=== PATIENT | female | born 1935 | race Caucasian/White ===

== ENCOUNTER 2024-04-11 12:50 | Outpatient (AMB) | payer OTHER, SELFPAY ==
--- NOTE | 2024-04-11 13:24 | MHC.OFFVIS ---
Vital Signs 04/11/24 13:35 Height 5 ft 3 in Weight 152 lb 1.903 oz BMI 26.9 BP 176/78 H Blood Pressure Location Rt brachial Position Sitting Pulse 84 Pulse Source Pulse Oximeter Pulse Oximetry (%) 95 Oxygen Delivery Method Room Air Intake Visit Reasons: New onset of GI bleed. Seen at 01/04 Intake Note: Relevant Flags or Indicators ? Requires Electrical Maintenance Mechanic? Fritz Susie presents in office today for a scheduled initial assessment. CC; Records from [facility] pulled. Pt was seen via ED. Pt was instructed by [facility] to follow up with [facility]. Pt was admitted to [facility] x4 days. Full work up. Relevant GI Sx as reported per pt? None currently. Pt reports internal bleed according to [facility]. ? Hx of any recent surgeries? Pt had double procedure performed while admitted to [facility]. Pt had been taking pantoprazole via PCP but the pt states that it didn't agree with them . Allergies Unable to Assess Allergy (Verified 04/11/24 13:26) HPI HPI New onset of GI bleed. Seen at 01/04: Details: 89-year-old female with past medical history of diabetes, hypothyroidism, atrial fibrillation, hypercholesteremia, history of pacemaker placed in 2020 is here today for initial consultation. Patient was found to have GI bleed and admitted to [facility] end of December beginning of January. Patient had normal CT scan, low H&H. Patient is on Eliquis as he has history of atrial fibrillation. Upper endoscopy and colonoscopy was warranted at that time and she had the procedure done at [facility] with Dr. So. No bleeding found. Small polyp with moderate hemorrhoids. Patient was to follow-up with Dr. So for capsule endoscopy. Patient was seen by PCP and her enlisted advisor. At the time of discharge her Eliquis was held. Currently patient is taking 2.5 mg twice a day. Patient denies any melena at this time, hematochezia. States that she tried to take pantoprazole, however she reports that she feels like it did not agree with her. Reports epigastric pain after taking it. Patient denies any nausea or vomiting. Denies any GI concerning symptoms at this time. Patient is accompanied by her son. [facility] Medical History (Updated 04/11/24 @ 13:34 by LILY Tierney) Atrial fibrillation Cardiac dysrhythmia Hyperlipidemia Diabetes Pacemaker Hypothyroidism Surgical History (Updated 04/11/24 @ 13:34 by LILY Tierney) S/P hip replacement (~2017) H/O colonoscopy History of open heart surgery (~2008) H/O endoscopy Social History (Updated 04/11/24 @ 13:35 by LILY Tierney) Alcohol intake: never Patient Tobacco Use Status: Former Tobacco user Review of Systems Const Denies weight gain and Denies weight loss ENT Reports no additional complaints, Denies dysphagia and Denies odynophagia Card Reports no additional complaints Resp Reports no additional complaints GI Denies abdominal pain, Denies belching, Denies melena, Denies bloating, Denies change in bowel habits, Denies dysphagia, Denies excessive flatus, Denies dyspepsia, Denies heartburn, Denies diarrhea, Denies loose stools, Denies nausea, Denies odynophagia and Denies vomiting Musc Reports no additional complaints Neuro Reports no additional complaints Psych Reports no additional complaints Endo Reports no additional complaints Physical Exam Vital Signs: Last Vital Signs Pulse 84 04/11/24 13:35 BP 176/78 H 04/11/24 13:35 Pulse Ox 95 04/11/24 13:35 Oxygen Delivery Method Room Air 04/11/24 13:35 BMI result Body Mass Index 26.9 Const General: healthy appearing, no acute distress and well developed Nutritional Appearance: well nourished Orientation/consciousness: patient oriented x3 Resp Effort & Inspection: normal respiratory effort, able to speak in complete sentences, no tracheal deviation and symmetric chest movement Auscultation: clear to auscultation bilaterally Cardio Rate: regular rate GI Inspection: Yes normal to inspection and No distended Palpation (GI): Soft to palpation, not firm, nontender and No hepatosplenomegaly present Auscultation: normal bowel sounds General: Yes no CVA tenderness Back/Spine/Pelvis Back: no CVA tenderness Skin General skin exam: elasticity normal, turgor normal and dry skin Neuro General: patient oriented x3 Psych Appearance: grossly normal Mental Status: mental status grossly normal Assessment & Plan Assessment & Plan (1) GI bleed: Code(s): K92.2 - Gastrointestinal hemorrhage, unspecified Qualifiers: GI bleed type/associated pathology: unspecified gastrointestinal hemorrhage type Qualified Code(s): K92.2 - Gastrointestinal hemorrhage, unspecified Plan Repeat CBC today. Patient will be scheduled for endoscopic capsule. Prep sent to pharmacy. Patient will be scheduled with RN and will return to the office after capsule is completed and read. Both patient and her son are agreeable to plan of care and verbalizes understanding of instructions. They were given the opportunity to ask questions and all questions answered. Thank you for allowing me to participate in her care Orders: Orders Complete Blood Count no Diff 04/11/24 K21.9 - Gastro-esophageal reflux disease without esophagitis Medications: New bisacodyl (Dulcolax (bisacodyl)) take 4 tabs at noon the day before your colonoscopy 20 mg (4 x 5 mg) PO ONCE 4 tabs 0RF 1 day Z12.11 - Encounter for screening for malignant neoplasm of colon polyethylene glycol 3350 (Miralax) As directed by gastroenterology department at [facility] 238 grams PO ONCE 238 grams 0RF Z12.11 - Encounter for screening for malignant neoplasm of colon Coding Level of Care Code New Pt Level 4 (02464) Diagnoses Gastrointestinal hemorrhage, unspecified gastrointestinal hemorrhage type K92.2 GI bleed type/associated pathology: unspecified gastrointestinal hemorrhage type Time Spent (min) 45 Comment 30 minutes spent with patient and additional 15 minutes spent reviewing her records
[2024-04-11 13:35] VITALS: BP 176/78; PULSE 84; O2SAT 95; BMI 26.9
== END 2024-04-11 14:03 | disposition home or self-care (01) ==
PROVIDERS: PCP Internal Medicine; Visit Provider Nurse Practitioner Family
DX: K92.2 Gastrointestinal hemorrhage, unspecified (principal)
CPT/HCPCS: 99204

== ENCOUNTER → 2024-04-11 12:50 | Outpatient (BNVA) | payer OTHER, SELFPAY | PROVIDERS: PCP Internal Medicine; Visit Provider Nurse Practitioner Family ==